=== PATIENT | female | born 2000 | race Caucasian/White ===

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

== ENCOUNTER 2019-04-07 16:00 | Emergency (ER) | payer SELFPAY ==
[~2019-04-07] VITALS: Ht 162.6 cm; Wt 79.8 kg
[2019-04-07 16:08] VITALS: Ht 162.6 cm; Wt 79.8 kg
[2019-04-07 17:51] LABS: BASOPHIL % 0.2 % (0-2); PLATELET COUNT 317 x10^3mcL (130-400); RED CELL DISTRIBUTION WIDTH 13.4 % (11.5-14.5)
[2019-04-07 18:05] LABS: ALKALINE PHOSPHATASE 109 U/L (46-116); ALT/SGPT 26 U/L (14-59); AST/SGOT 14 U/L (15-37); BILIRUBIN TOTAL 0.17 mg/dL (0.20-1.00); CALCIUM 9.5 mg/dL (8.5-10.1); CARBON DIOXIDE 25.7 mmol/L (21-32); CHLORIDE SERUM 91 mmol/L (98-107); CREATININE SERUM 0.6 mg/dL (0.6-1.0); GFR1 > 60 mL/min; POTASSIUM SERUM 4.1 mmol/L (3.5-5.1); SODIUM SERUM 127 mmol/L (136-145); TOTAL PROTEIN, SERUM 8.1 g/dL (6.4-8.2)
[2019-04-07 18:06] LABS: ALBUMIN 2.9 g/dL (3.4-5.0)
[2019-04-07 18:15] LABS: GLUCOSE SERUM 524 mg/dL (74-106)
[2019-04-07 21:56] VITALS: BP 132/90
== END 2019-04-07 21:56 | disposition home or self-care (01) ==
LOC: ED 16:00
PROVIDERS: Emergency Medicine
DX: E11.65 Type 2 diabetes mellitus with hyperglycemia (principal); L03.115 Cellulitis of right lower limb
CPT/HCPCS: 82962; J0696; J1815; J2001; J7030; J7060

== ENCOUNTER 2019-04-10 18:44 | Inpatient (IN) | payer MEDICAID ==
[~2019-04-10] VITALS: Ht 162.6 cm; Wt 80.4 kg
[2019-04-10 18:58] VITALS: Ht 162.6 cm; Wt 80.4 kg
--- NOTE | 2019-04-10 19:26 | NUR ---
PT BIB SELF FOR C/O RT FOOT PAAIN. PER PT SHE WAS SEEN IN THE ED THREE DAYS AGO FOR A GOOT INFECTION. THE ABCEES WAS DRAINED AND THE PT WAS GIEN AND RX FOR KEFLEX. PT STS THAT SHE DIDNT HAVE THE MONEY FOR THE RX AND DID NOT TAKE IT UNTIL YESTERDAAY. PT REPORTS THAT SHE WOKE UP WITH HER RT FOOT LOOKING " WORSE". SWELLING AND ECCYMOSIS NOTED TO THE RIIGHT FOOT. +2 PTTING EDEMA NOTED. PT REPORT THAT SHE IS DIABETIC AND HAS NOT BEEN COMPLIANNT WITH HER INSULIKN AND METFORMN FOR "MONTHS". PT IS A/O X4. PTRESPS ARE E/U. PT PLACED ON MONITOR. SINUS TACH ON MONITOR
[2019-04-10 20:06] LABS: BASOPHIL % 0.3 % (0-2); PLATELET COUNT 285 x10^3mcL (130-400); RED CELL DISTRIBUTION WIDTH 12.9 % (11.5-14.5)
[2019-04-10 20:09] LABS: CALCIUM 8.9 mg/dL (8.5-10.1); CARBON DIOXIDE 24.9 mmol/L (21-32); CHLORIDE SERUM 95 mmol/L (98-107); CREATININE SERUM 0.6 mg/dL (0.6-1.0); GFR1 > 60 mL/min; GLUCOSE SERUM 433 mg/dL (74-106); SODIUM SERUM 134 mmol/L (136-145)
--- NOTE | 2019-04-10 20:10 | NUR ---
FLETCHER [id number] BY DR MASTERS
--- NOTE | 2019-04-10 21:41 | NUR ---
PT MEDICATED PER EMAR ORDERS. PLEASE SEE EMAR. PT IS A/O X4. PT RESPS ARE E/U. PT DENIES ANY PAIN AT THIS TIME. NO ACDC NOTED
--- NOTE | 2019-04-10 22:21 | NUR ---
GAVE PT REPORT TO KM COURTNEY ON MEDSUR FLOOR. SHE WILL ASSUME PRIAMRY CARE OF PT FOR FURTHER CARE
--- NOTE | 2019-04-10 22:48 | NUR ---
PT WHEELED UPSTAIS VIA FRANKY PARDO BY FRANCHESCA MCCAIN. NO INCIDENCE NOTED
[2019-04-10 22:55] VITALS: BP 124/84
--- NOTE | 2019-04-10 23:03 | NUR ---
RECEIVED FROM ER, TRANSPORTED VIA [facility]. AWAKE AND ALERT, ORIENTED TO NAME, PLACE, TIME AND SITUATION. SPEECH CLEAR AND APPROPRIATE. BREATHING EVEN AND UNLABORED ON ROOM AIR. ABLE TO AMBULATE INTO ROOM, BUT WITH ALTERED MOBILITY DUE TO SWELLING TO RIGHT FOOT. CRUTCHES WITH PT ON ADMISSION TO UNIT. AREA OF 2.5 X 2 CM AREA OF WHITE SKIN TO PLANTAR AREA OF RIGHT FOOT JUST BELOW 2ND AND 3RD TOES WITH SURROUNDING SKIN RED IN COLOR. +1 EDEMA TO RIGHT FOOT. DENIES HAVING PAIN AT THIS TIME. PHOTODOCUMENTATION DONE. SALINE LOCK TO LEFT AC. INSTRUCTED ON USE OF CALL LIGHT TO CALL FOR ASSISTANCE, PLACED WITHIN EASY REACH.
--- NOTE | 2019-04-10 23:08 | NUR ---
[id number] TO NURSE CHEKO
--- NOTE | 2019-04-10 23:10 | NUR ---
RECEIVED CALL FROM RT FOR PT CXR RESULTS. CXR SHOWING PROMINENT LUCENCY AROUND THE HEART, WHICH MAY BE ARTIFACT VS PNEUMOMEDIASTINUM, AND RECCOMENDING CT FOR CLARIFICATION. RESULTS REPORTED TO DR DODD. NO NEW ORDERS RECEIVED. WILL CONT TO MONITOR.
[2019-04-10 23:35] LABS: PHOSPHOROUS 4.4 mg/dL (2.5-4.9)
[2019-04-10 23:36] LABS: CHOLESTEROL/HDL RATIO 6.3
[2019-04-11 00:01] LABS: microscopic required? YES; urine erythrocyte 3+ (NEGATIVE)
[2019-04-11 02:17] LABS: T3 TOTAL 0.58 ng/mL
[2019-04-11 02:22] LABS: AMPHETAMINE QUAL UR NONE DETECTED (See below)
[2019-04-11 02:48] LABS: FREE T4 1.26 ng/dL (0.76-1.46)
[2019-04-11 02:49] LABS: FREE THYROXINE INDEX 2.7 ug/dL (1.4-4.5)
[2019-04-11 05:43] VITALS: BP 132/81
--- NOTE | 2019-04-11 06:00 | NUR ---
PT SLEPT AT INTERVALS THROUGHOUT THE NIGHT, BREATHING EVEN AND UNLABORED ON RA. NO SIGNIFICANT CHANGE DURING SHIFT. NO C/O PAIN. ALL NEEDS ASSESSED AND ATTENDED TO. NO ACUTE DISTRESS NOTED. BED AT LOWEST SETTING. SIDE RAILS X2 UP. CALL LIGHT WITHING REACH. WILL CONT TO MONITOR AND ENDORSE CARE TO AM NURSE.
[2019-04-11 06:20] LABS: BASOPHIL % 0.2 % (0-2); PLATELET COUNT 258 x10^3mcL (130-400); RED CELL DISTRIBUTION WIDTH 13.3 % (11.5-14.5)
--- NOTE | 2019-04-11 06:45 | NUR ---
PT HAD I AND D PER DR TATUM, CONSENT WAS SIGNED AND PUT IN CHART. PT TOLERATED PROCEDURE WELL. STATES "I FEEL MUCH BETTER". NO ACUTE DISTRESS NOTED. PICTURE AFTER PROCEDURE TAKEN AND PUT ON CHART. SAFETY PRECAUTIONS IN PLACE. WILL ENDORSE CARE TO AM NURSE.
[2019-04-11 06:47] LABS: CALCIUM 8.7 mg/dL (8.5-10.1); CARBON DIOXIDE 23.7 mmol/L (21-32); CHLORIDE SERUM 95 mmol/L (98-107); CREATININE SERUM 0.5 mg/dL (0.6-1.0); GFR1 > 60 mL/min; GLUCOSE SERUM 291 mg/dL (74-106); MAGNESIUM 1.8 mg/dL (1.8-2.4); PHOSPHOROUS 4.1 mg/dL (2.5-4.9); POTASSIUM SERUM 4.2 mmol/L (3.5-5.1); SODIUM SERUM 129 mmol/L (136-145)
--- NOTE | 2019-04-11 07:15 | NUR ---
SEEN IN BED AAOX4. NO RESP DISTRESS, BREATHING E/U ON ROOM AIR. DRSG TO RIGHT FOOT WRAPPED WITH BATOOL, CDI, ELEVATED ON PILLOWS. STATED PAIN IS TOLERABLE. ON CCHO DIET. S/L TO LFA INTACT AND PATENT. ENCOURAGED TO AMBULATE USING CRUTCHES WITH RIGHT HEEL WEIGHT BEARING WITH POST-OP SHOE. PATIENT VERBALIZED UNDERSTANDING. CALL LIGHT PLACED WITHIN EASY REACH. SIDERAILS UP X2.
[2019-04-11 07:55] VITALS: BP 123/86
--- NOTE | 2019-04-11 09:36 | NUR ---
NORCO 1 TAB PO GIVEN FOR RIGHT FOOT INCISION SITE PAIN, WILL CONTINUE TO MONITOR. KEPT RLE ELEVATED ON 2 PILLOWS.
[2019-04-11 11:32] VITALS: BP 119/82
[2019-04-11 16:00] VITALS: BP 118/73
--- NOTE | 2019-04-11 18:43 | NUR ---
NO ANY DISTRESS THROUGHOUT SHIFT. VSS. NORCO GIVEN X2 FOR RLE PAIN WITH GOOD RELIEF. ALL SCHEDULED MEDS GIVEN. S/L TO LFA INTACT AND PATENT. DRSG TO RLE CDI, ELEVATED ON PILLOWS.
--- NOTE | 2019-04-11 19:55 | NUR ---
AWAKE AND ALERT, ORIENTED TO NAME, PLACE, TIME AND SITUATION. SPEECH CLEAR AND APPROPRIATE. BREATHING EVEN AND UNLABORED ON ROOM AIR. DENIES HAVING PAIN TO RIGHT FOOT AT THIS TIME. AMBULATORY WITH POST OP BOOT AND CRUTCHES. DRESSING TO RIGHT FOOT CDI. ELEVATED ON 2 PILLOWS. CALL LIGHT WITHIN EASY REACH.
[2019-04-11 20:45] VITALS: BP 1116/87; BP 116/87
--- NOTE | 2019-04-11 23:21 | NUR ---
awake and alert, using her cellphone, breathing even and unlabored on room air. call light within easy reach. saline lock to left forearm flushed well, due zosyn ivpb administered.
[2019-04-12 05:53] VITALS: BP 129/88
--- NOTE | 2019-04-12 06:17 | NUR ---
EYES CLOSED, EASILY AWAKENED. DENIES HAVING PAIN. BREATHING EVEN AND UNLABORED ON ROOM AIR. KEPT ON CONTACT ISOLATION. DRESSING TO RIGHT FOOT CDI. KEPT ELEVATED ON PILLOWS.
[2019-04-12 07:09] LABS: BASOPHIL % 0.3 % (0-2); PLATELET COUNT 274 x10^3mcL (130-400)
--- NOTE | 2019-04-12 07:15 | NUR ---
RECEIVED PT IN NO ACUTE DISTRESS. RESTING IN BED. AAOX4. GETTING DRESSING CHANGE TO RIGHT FOOT BY PODIATRY. DENIES PAIN. IV TO LFA, NO REDNESS OR SWELLING NOTED. CRUTCHES AND POST-OP SHOE AT BEDSIDE. BED IN LOW POSITION, CALL LIGHT WITHIN REACH. WILL CONTINUE TO MONITOR.
--- NOTE | 2019-04-12 07:19 | NUR ---
AWAKE AND ALERT, DRESSING TO RIGHT FOOT WAS REMOVED BY FLIGHT OPERATIONS ENGINEER. IN NO ACUTE DISTRESS. ENDORSED TO NURSE PRO
[2019-04-12 07:33] LABS: CALCIUM 8.3 mg/dL (8.5-10.1); CARBON DIOXIDE 24.5 mmol/L (21-32); CHLORIDE SERUM 102 mmol/L (98-107); CREATININE SERUM 0.5 mg/dL (0.6-1.0); GFR1 > 60 mL/min; GLUCOSE SERUM 264 mg/dL (74-106); MAGNESIUM 1.7 mg/dL (1.8-2.4); PHOSPHOROUS 4.3 mg/dL (2.5-4.9); POTASSIUM SERUM 4.2 mmol/L (3.5-5.1); SODIUM SERUM 138 mmol/L (136-145)
--- NOTE | 2019-04-12 07:47 | NUR ---
DR. DRIVER SPOKE WITH PT REGARDING PROCEDURE, RISKS AND BENEFITS. INFORMED CONSENT SIGNED AND PLACED IN CHART. PRE-OP PREP DONE. PT MARKED SURGICAL SITE WITH SURGICAL MARKER. PT REPORTS LAST DRINK OF WATER AROUND 6 AM. PT INFORMED OF NPO STATUS, VERBALIZED UNDERSTANDING. WILL CONTINUE TO MONITOR.
[2019-04-12 09:14] VITALS: BP 131/88
--- NOTE | 2019-04-12 09:15 | NUR ---
PT WENT DOWN TO OR IN NO ACUTE DISTRESS.
[2019-04-12 11:25] VITALS: BP 127/83
--- NOTE | 2019-04-12 11:35 | NUR ---
PT BACK FROM OR. NO ACUTE DISTRESS. AAOX4. RESP EVEN AND UNLABORED ON RA. DENIES PAIN AT THIS TIME. DRESSING TO RIGHT FOOT C/D/I. RLE ELEVATED WITH PILLOW. IV TO LFA WITH NO REDNESS OR SWELLING. HOB ELEVATED. CALL LIGHT WITHIN REACH. FAMILY AT BEDSIDE. WILL CONTINUE TO MONITOR.
[2019-04-12 13:31] VITALS: BP 130/81
[2019-04-12 17:07] VITALS: BP 127/80
--- NOTE | 2019-04-12 18:00 | NUR ---
PT SITTING UP IN BED. NO ACUTE DISTRESS. AAOX4. RESP EVEN AND UNLABORED ON RA. EATING DINNER. IV TO LFA, NO REDNESS OR SWELLING NOTED. DRESSING TO R FOOT C/D/I, RLE ELEVATED WITH PILLOW. CRUTCHES AND POST OP SHOE AT BEDSIDE. PT NOW ON STANDARD PRECAUTIONS. BED IN LOW POSITION, CALL LIGHT WITHIN REACH. WILL ENDORSE TO ONCOMING SHIFT.
--- NOTE | 2019-04-12 19:56 | NUR ---
AWAKE AND ALERT, WATCHING TV. BREATHING EVEN AND UNLABORED ON ROOM AIR. SALINE LOCKED. DENIES HAVING PAIN. RIGHT FOOT ELEVATED ON 2PILLOWS. CALL LIGHT WITHIN EASY REACH. OFF ISOLATION.
[2019-04-12 20:43] VITALS: BP 129/88
--- NOTE | 2019-04-12 22:14 | NUR ---
SISTER TO STAY THE NIGHT, OK WITH CANDELARIA STOLL.
--- NOTE | 2019-04-13 04:56 | NUR ---
BP 92/51 (MAP 63), PA 82. ASYMPTOMATIC. DR. DODD MADE AWARE.
[2019-04-13 05:59] VITALS: BP 116/76
[2019-04-13 07:01] LABS: BASOPHIL % 0.4 % (0-2); PLATELET COUNT 300 x10^3mcL (130-400); RED CELL DISTRIBUTION WIDTH 13.1 % (11.5-14.5)
[2019-04-13 07:25] LABS: CALCIUM 8.6 mg/dL (8.5-10.1); CARBON DIOXIDE 28.6 mmol/L (21-32); CHLORIDE SERUM 100 mmol/L (98-107); CREATININE SERUM 0.5 mg/dL (0.6-1.0); GFR1 > 60 mL/min; GLUCOSE SERUM 151 mg/dL (74-106); POTASSIUM SERUM 3.8 mmol/L (3.5-5.1); SODIUM SERUM 134 mmol/L (136-145)
--- NOTE | 2019-04-13 07:27 | NUR ---
AWAKE AND ALERT, IN NO ACUTE DISTRESS. ENDORSED TO NURSE ROME
[2019-04-13 09:05] VITALS: BP 126/87
--- NOTE | 2019-04-13 09:36 | NUR ---
AT 0710 RECEIVED PT FROM NIGHT RN. RUSS4. RESPIRATIONS E/U. NON-TELE. DRESSING TO RLE ELEVATED ON PILLOW. CRUTCHES AND POST-OP SHOE AT BEDSIDE. IV SITE SL TO [facility]. FAMILY AT BEDSIDE. CALL LIGHT WITHIN REACH. BED IN LOWEST POSITION. AT 0730 MUSIC WRITER CLEANED AND CHANGED DRESSING TO RLE. AT 0830 C/O 8/10 PAIN ON RLE. GIVEN NORCO PER EMAR.
--- NOTE | 2019-04-13 10:25 | NUR ---
I HAVE REVIEWED THE DATA COLLECTION BY ROZ VINSON (NAME):NOHEMY SIMON RN ENTERED ON (DATE/TIME):04/13/19 @ 1025 I CONCUR WITH THE DATA AND ANY EXCEPTIONS OR COMMENTS ARE LISTED BELOW:
[2019-04-13 12:16] VITALS: BP 131/78
--- NOTE | 2019-04-13 13:31 | NUR ---
PT AWAKE AND ALERT. SITTING UP ON THE SIDE OF BED EATING LUNCH. NO APPARENT DISTRESS NOTED. WILL CONTINUE TO MONITOR
--- NOTE | 2019-04-13 17:03 | NUR ---
Discount pharmacy card and list to low cost medical clinics given to patient by Charissa Mccoy.
[2019-04-13 17:10] VITALS: BP 116/81
--- NOTE | 2019-04-13 18:54 | NUR ---
NO SIGNIFICANT CHANGE NOTED. WILL ENDORSE CARE TO NEXT SHIFT.
--- NOTE | 2019-04-13 21:00 | NUR ---
PT RESTING QUIETLY. BREATH SOUNDS CLEAR JENNA. 02 SAT 97% ON RA. ABD SOFT WITH AUDIBLE [id number]. PT HAD BM TODAY, SOFT AND FORMED. PT DENIES ANY PAIN. MED GIVEN ORDERED. CALL LIGHT WITHIN REACHED.
[2019-04-13 21:57] VITALS: BP 120/84
--- NOTE | 2019-04-14 00:22 | NUR ---
PT STILL AWAKE. RESP EVEN AND UNLABORED. PT DENIES ANY PAIN. RT FOOT DRSG C&D&I, AND ELEVATED ON 2 PILLOWS. ZOSYN IVPB ORDERD, HL ON LT FA INTACT, IVPB INFUSING WELL, SITE CLEAR. CALL LIGHT WITHIN REACHED.
--- NOTE | 2019-04-14 04:50 | NUR ---
PT COMPLAINING OF RT FOOT PAIN AND REQUESTING PAIN MED. REQUESTING NORCO AND GIVEN. PAIN 11/08.BP 112/74. RT FOOT DRSG INTACT WITH 2+ POST TIB PULSE PRESENT. RT LEG CONT ELEVATED ON 2 PILLOWS. HL ON R/A INTACT. CALL LIGHT WTHIN REACHED.
[2019-04-14 05:24] VITALS: BP 112/74
--- NOTE | 2019-04-14 06:00 | NUR ---
PT STATED PAIN IS BETTER AND PAIN SCALE IS DOWN TO 5/10, RESTING QUIETLY. IV SITE ON RT F/A, INTACT AND ZOSYN INFUSING WELL, HL SITE NO REDNESS NOTED. FLUSHED AFTER ZOSYN WAS DONE. CALL LIGHT WITHIN REACHED.
[2019-04-14 06:39] LABS: BASOPHIL % 0.6 % (0-2); PLATELET COUNT 358 x10^3mcL (130-400); RED CELL DISTRIBUTION WIDTH 13.4 % (11.5-14.5)
[2019-04-14 06:50] LABS: CALCIUM 8.6 mg/dL (8.5-10.1); CARBON DIOXIDE 29.6 mmol/L (21-32); CHLORIDE SERUM 104 mmol/L (98-107); CREATININE SERUM 0.5 mg/dL (0.6-1.0); GFR1 > 60 mL/min; GLUCOSE SERUM 170 mg/dL (74-106); POTASSIUM SERUM 3.1 mmol/L (3.5-5.1); SODIUM SERUM 140 mmol/L (136-145)
[2019-04-14 08:10] VITALS: BP 116/84
[2019-04-14] MEDS ORDERED: CLEOCIN HCL150 MG PO (10:44)
[2019-04-14] MEDS ORDERED: GLUCOCARD EXPR1 EAC2 MC (10:45)
[2019-04-14] MEDS ORDERED: LANTUS100 U/ML SC (10:46)
[2019-04-14] MEDS ORDERED: METFORMIN HCL500 M4 PO (10:47)
[2019-04-14 12:53] VITALS: BP 127/91
[2019-04-14 14:29] VITALS: BP 130/72
--- NOTE | 2019-04-14 15:00 | NUR ---
DRESSING CHANGE PROVIDED BY PATIENT. PHOTO ATTEMPTED TO TAKE, BUT LOW BATTERY ON CAMERA AND PATIENT NEEDED TO LEAVE SOON SINCE HER RIDE WAS HERE.
--- NOTE | 2019-04-14 15:00 | NUR ---
DISCHARGE INSTRUCTIONS PROVIDED FOR PATIENT. PATIENT UNDERSTOOD ALL REASONS AND INDICATIONS FOR FOLLOW UP APPOINTMENTS. NO SIGNS OF DISTRESS NOTED. PICTURES ATTEMPTED TO BE TAKEN BUT CAMERA WAS LOW ON BATTERY. DRESSING CHANGED PRIOR TO DISCHARGE. IV CATHETER DISCONTINUED. PATIENT ID BANDS REMOVED. PATIENT SAFELY TRANSPORTED TO PRIVATE CAR WITH WHEELCHAIR. ALL BELONGINGS AND CRUTCHES GIVEN TO PATIENT.
== END 2019-04-14 14:58 | disposition home or self-care (01) | DRG 380 ==
LOC: ED 18:44 → MU 21:45
PROVIDERS: Emergency Medicine; Podiatrist Foot & Ankle Surgery; ADMIT Family Medicine
PROC: 0JBQ0ZZ Excision of Right Foot Subcutaneous Tissue and Fascia, Open Approach (ICD-10-PCS; 2019-04-11)
PROC: 0JBQ0ZZ Excision of Right Foot Subcutaneous Tissue and Fascia, Open Approach (ICD-10-PCS; principal; 2019-04-12 09:30)
DX: E11.621 Type 2 diabetes mellitus with foot ulcer (principal); L97.415 Non-pressure chronic ulcer of right heel and midfoot with muscle involvement without evidence of necrosis; D68.69 Other thrombophilia; E11.65 Type 2 diabetes mellitus with hyperglycemia; E87.1 Hypo-osmolality and hyponatremia; E87.8 Other disorders of electrolyte and fluid balance, not elsewhere classified; L02.611 Cutaneous abscess of right foot; E86.0 Dehydration; E78.5 Hyperlipidemia, unspecified; Z68.27 Body mass index [BMI] 27.0-27.9, adult; Z79.84 Long term (current) use of oral hypoglycemic drugs; Z91.14 Patient's other noncompliance with medication regimen
CPT/HCPCS: 82962; 84439; 97116-GP; G0378; J1644; J1815; J2001; J2250; J2405; J2543; J2704; J3010; J3490; J7030; J7040; Q0092